=== PATIENT | male | born 1990 | race Caucasian/White ===

== ENCOUNTER 2017-03-05 21:14 | Emergency (ER) | payer MEDICAID ==
[~2017-03-05 21:14] MED LIST: ALBUTEROL HFA INH; HYDROMET SYRUP480 ML PO; NO MEDICATIONS; PREDNISONE PO; ZITHROMAX PO
[2017-03-05] MEDS ORDERED: NO MEDICATIONS (21:27)
[2017-03-05 22:03] LABS: BASOPHIL# 0.1 X10e3 (0-0.3); BASOPHIL% 1.1 % (0-2.5); EOSINOPHIL# 0.2 X10e3 (0-0.7); HEMATOCRIT 48.1 % (38.0-50.0); HEMOGLOBIN 16.6 gm/dL (13.0-16.0); LYMPHOCYTE# 3.5 X10e3 (1.0-3.5); LYMPHOCYTE% 34.2 % (17.0-45.0); MEAN CELL VOLUME 91.1 FL (83-96); MEAN CORPUSCULAR HEMOGLOBIN 31.5 PG (28-34); MEAN CORPUSCULAR HGB CONC 34.5 g/dL (30-36); MEAN PLATELET VOLUME 8.9 FL (6.5-11.5); MONOCYTE% 9.7 % (3.0-12.0); NEUTROPHIL# 5.4 X10e3 (1.5-7.1); PLATELET COUNT 194 X10e3 (140-420); RED BLOOD COUNT 5.28 X10e (3.90-5.60); RED CELL DISTRIBUTION WIDTH 12.4 % (11.0-15.5); WHITE BLOOD COUNT 10.2 X10e3 (4.0-10.5)
[2017-03-05 22:07] LABS: DIFF IND NO
[2017-03-05 22:22] LABS: ALBUMIN SERUM 5.2 g/dL (3.5-5.0); ALKALINE PHOSPHATASE 71 U/L (32-92); ALT (SGPT) 12 U/L (10-40); AMYLASE 26 U/L (0-46); AST (SGOT) 19 U/L (10-42); BLOOD UREA NITROGEN 13 mg/dL (9-23); CALCIUM SERUM 9.8 mg/dL (8.4-10.2); CARBON DIOXIDE 29 mmol/L (22-31); CHLORIDE 96 mmol/L (100-111); GLOM FILT RATE Estimated 104.9 mL/min (>60); GLUCOSE FASTING 99 mg/dL (70-110); LIPASE 32 U/L (22-51); POTASSIUM 3.6 mmol/L (3.5-5.1); PROTEIN TOTAL SERUM 8.3 g/dL (6.0-8.3); SODIUM 132 mmol/L (135-145)
[2017-03-05 22:24] LABS: BILIRUBIN, DIRECT <0.1 mg/dL (0.0-0.2); BILIRUBIN,INDIRECT 0.9 mg/dL (0.0-0.9)
== END 2017-03-05 22:22 | disposition home or self-care (01) ==
LOC: SED 21:14
PROVIDERS: Emergency Medicine
DX: R11.2 Nausea with vomiting, unspecified (principal); R19.7 Diarrhea, unspecified; F17.200 Nicotine dependence, unspecified, uncomplicated
CPT/HCPCS: 36415; 80048; 80076; 82150; 83690; 85025; 96361; 96374; 96375; 99284; J2405